=== PATIENT | female | born 1970 | race Caucasian/White ===

== ENCOUNTER 2020-12-16 16:03 | Emergency (ER) | payer OTHER ==
[2020-12-16 16:21] VITALS: BP 133/68; PULSE 77; TEMP 98.5; BMI 26.7
[2020-12-16] MEDS ORDERED: METHOCARBAMOL 500 MG TABLET PO ONE (17:01)
[2020-12-16] MEDS ORDERED: NAPROXEN 500 MG TABLET PO ONE (17:01)
[2020-12-16] MEDS ORDERED: METHOCARBAMOL 500 MG TABLET ONE (17:17)
[2020-12-16] MEDS ORDERED: NAPROXEN 500 MG TABLET ONE (17:18)
== END 2020-12-16 17:25 | disposition home or self-care (01) ==
LOC: JER 16:03
DX: M54.2 Cervicalgia (principal); R07.89 Other chest pain
CPT/HCPCS: 99284-25